=== PATIENT | female | born 1980 | race Caucasian/White ===

== ENCOUNTER → 2016-11-24 | Outpatient (REF) | payer OTHER | LOC: M SFHCPLAZ 15:23 | PROVIDERS: ATTEND Nurse Practitioner Family | DX: R19.7 Diarrhea, unspecified (principal) ==

== ENCOUNTER → 2016-11-27 | Outpatient (CLI) | payer BC, OTHER ==
[2016-11-27 09:36] LABS: BASO % 0.3 % (0.0-1.0); EOS # 0.1 K/mm3 (0.0-0.50); EOS % 1.9 % (0.0-3.0); LARGE UNSTAINED CELL # 0.1 K/mm3 (0.0-0.4); LARGE UNSTAINED CELL % 1.7 % (0.0-4.0); LYMPH # 1.2 K/mm3 (1.5-4.5); MEAN CORPUSCULAR HEMOGLOBIN 28.8 pg (27.0-33.0); MEAN CORPUSCULAR HGB CONC 32.9 g/dl (32.0-36.5); MEAN CORPUSCULAR VOLUME 87.4 fl (80.0-96.0); MONO # 0.3 K/mm3 (0.0-0.8); MONO % 5.2 % (0.0-5.0); NEUTROPHILS # 4.1 K/mm3 (1.8-7.7); NEUTROPHILS % 69.9 % (36.0-66.0); PLATELET COUNT, AUTOMATED 224 k/mm3 (150-450); WHITE BLOOD COUNT 5.8 K/mm3 (4.0-10.0)
[2016-11-27 10:29] LABS: ALBUMIN 3.4 GM/DL (3.2-5.2); ALBUMIN/GLOBULIN RATIO 1.17 (1.00-1.93); ALKALINE PHOSPHATASE 85 U/L (45-117); ALT/SGPT 37 U/L (12-78); ANION GAP 6 MEQ/L (8-16); AST/SGOT 14 U/L (15-37); BILIRUBIN,TOTAL 0.5 MG/DL (0.2-1.0); BLOOD UREA NITROGEN 14 MG/DL (7-18); CALCIUM LEVEL 8.5 MG/DL (8.5-10.1); CARBON DIOXIDE LEVEL 28 MEQ/L (21-32); CHLORIDE LEVEL 109 MEQ/L (98-107); CHOLESTEROL LEVEL 158 MG/DL (<200); CREATININE FOR GFR 0.62 MG/DL (0.55-1.02); FREE T4 0.98 NG/DL (0.76-1.46); GLOMERULAR FILTRATION RATE > 60.0 (>60); GLUCOSE, FASTING 90 MG/DL (70-105); POTASSIUM SERUM 4.2 MEQ/L (3.5-5.1); SODIUM LEVEL 143 MEQ/L (136-145); TOTAL PROTEIN 6.3 GM/DL (6.4-8.2); TRIGLYCERIDES LEVEL 59 MG/DL (<150)
== END ==
LOC: M LAB 09:09
PROVIDERS: ATTEND Nurse Practitioner Family
DX: R19.7 Diarrhea, unspecified (principal); Z83.3 Family history of diabetes mellitus; Z13.220 Encounter for screening for lipoid disorders; E55.9 Vitamin D deficiency, unspecified

== ENCOUNTER → 2017-01-11 | Outpatient (CLI) | payer BC, OTHER | LOC: M LAB 08:45 | PROVIDERS: ATTEND Internal Medicine Gastroenterology | DX: K58.0 Irritable bowel syndrome with diarrhea (principal) ==

== ENCOUNTER → 2017-01-13 | Outpatient (CLI) | payer BC, OTHER ==
[~2017-01-13] MED LIST: E-Z PAQUE 60% w/v SUSP 355ML BOTTLE As Ordered ONE
--- NOTE | 2017-01-13 15:24 | REP ---
SMALL BOWEL FOLLOW-THROUGH WITH KUB: 01/13/2017 COMPARISON: No prior study. CLINICAL HISTORY: Chronic diarrhea, recent increase in symptoms. FINDINGS: The gas pattern is nonspecific. No dilated loops are noted. The SI joints symmetric and normal without sclerosis or erosions. Visualized bones intact. No abnormal calcification. Oral barium preparation given with immediate and 20-minute images obtained and spot compression images. The 20-minute images show the oral contrast throughout the small bowel into the right colon. There is a normal feathery pattern of the jejunum mucosa. No nodularity, fold thickness abnormality. Contrast through the entire ileum. There is no dilated loops, angulated or strictured loops, loop separation or mass and no extrinsic mass effect on small bowel loops. The terminal ileum was well seen and showed normal peristalsis without stricture, loop separation or fold thickening. The ileocecal valve unremarkable. There was no tenderness with ballottement anywhere in the abdomen or pelvis on this examination. IMPRESSION: 1. Transit time to the cecum just less than 20 minutes with no dilated loops, angulated or strictured loops, loop separation, mass, extrinsic mass effect, full-thickness abnormality or filling defects in the small bowel loops. No significant finding. Fluoroscopy time: 1 minute 3 seconds. Signed by Jonnie Mack MD 01/13/2017 05:11 P
== END ==
LOC: M RAD 09:00
PROVIDERS: ATTEND Internal Medicine Gastroenterology
DX: R19.7 Diarrhea, unspecified (principal)

== ENCOUNTER → 2017-01-19 | Outpatient (CLI) | payer BC, OTHER ==
[~2017-01-19] VITALS: Ht 170.2 cm; Wt 79.8 kg
[~2017-01-19] MED LIST changes: -E-Z PAQUE 60% w/v SUSP 355ML BOTTLE As Ordered ONE; +LIDOCAINE 2% INJ 100 MG/5 ML SDV (FOR ANES.) As Ordered ONE; +NS 1,000 ML IV SCH; +PROPOFOL 200 MG/20 ML VIAL As Ordered ONE
--- NOTE | 2017-01-19 15:51 | ROOR ---
Patient Name: Leda Fajardo Procedure Date: 01/19/2017 3:39 PM Date of : 1980 Age: 36 Room: [facility] Gender: Female Note Status: Finalized Procedure: Upper GI endoscopy Indications: Generalized abdominal pain, Endoscopy to assess diarrhea in patient suspected of having disease of the small-bowel Providers: Song SHABAZZ MD Referring MD: Ciera Delgado NP Requesting Provider: Medicines: Monitored Anesthesia Care Complications: No immediate complications. Procedure: Pre-Anesthesia Assessment: - The heart rate, respiratory rate, oxygen saturations, blood pressure, adequacy of pulmonary ventilation, and response to care were monitored throughout the procedure. The Endoscope was introduced through the mouth, and advanced to the third part of duodenum. The upper GI endoscopy was accomplished without difficulty. The patient tolerated the procedure well. Findings: The esophagus was normal. The stomach was normal. The examined duodenum was normal. Biopsies for histology were taken with a cold forceps for evaluation of celiac disease. Impression: - Normal esophagus. - Normal stomach. - Normal examined duodenum. Biopsied. Recommendation: - Telephone endoscopist for pathology results in 2 weeks. Song Shabazz MD Song SHABAZZ MD 01/19/2017 3:51:05 PM This report has been signed electronically. Number of Addenda: 0 Note Initiated On: 01/19/2017 3:39 PM Estimated Blood Loss: Estimated blood loss: none.
--- NOTE | 2017-01-19 16:07 | ROOR ---
Patient Name: Leda Fajardo Procedure Date: 01/19/2017 3:40 PM Date of : 1980 Age: 36 Room: [facility] Gender: Female Note Status: Finalized Procedure: Colonoscopy Indications: Clinically significant diarrhea of unexplained origin Providers: Song SHABAZZ MD Referring MD: Ciera Delgado NP Requesting Provider: Medicines: Monitored Anesthesia Care Complications: No immediate complications. Procedure: Pre-Anesthesia Assessment: - The heart rate, respiratory rate, oxygen saturations, blood pressure, adequacy of pulmonary ventilation, and response to care were monitored throughout the procedure. The Colonoscope was introduced through the anus and advanced to 7 cm into the ileum. The colonoscopy was performed without difficulty. The patient tolerated the procedure well. The quality of the bowel preparation was good. Findings: The perianal and digital rectal examinations were normal. (Exam: Complete, Prep: Good or Excellent.) The terminal ileum appeared normal. Internal hemorrhoids were found during retroflexion. The hemorrhoids were moderate. A 5 mm polyp was found in the cecum. The polyp was sessile. The polyp was removed with a cold snare. Resection and retrieval were complete. The exam was otherwise without abnormality on direct and retroflexion views. Biopsies for histology were taken with a cold forceps from the entire colon for evaluation of microscopic colitis. Impression: - Moderate Internal hemorrhoids. - One 5 mm polyp in the cecum, removed with a cold snare. Resected and retrieved. - The examination of the colon and terminal ileum is otherwise normal on direct and retroflexion views. - Biopsies were taken with a cold forceps from the entire colon for evaluation of microscopic colitis. Recommendation: - stop Hyoscyamine, start 14 day course of Xifaxan for Irritable bowel syndrome - (the script was sent to your pharmacy on file) - Telephone endoscopist for pathology results in 2 weeks. Song Shabazz MD Song SHABAZZ MD 01/19/2017 4:07:08 PM This report has been signed electronically. Number of Addenda: 0 Note Initiated On: 01/19/2017 3:40 PM Estimated Blood Loss: Estimated blood loss: none.
[2017-01-19 16:30] VITALS: BP 104/67
== END | disposition home or self-care (01) ==
LOC: M OPP 12:32
PROVIDERS: ATTEND Internal Medicine Gastroenterology
DX: R19.7 Diarrhea, unspecified (principal); D12.0 Benign neoplasm of cecum; K64.8 Other hemorrhoids; R10.84 Generalized abdominal pain

== ENCOUNTER → 2017-03-10 | Outpatient (REF) | payer OTHER | LOC: M SFHCPLAZ 12:56 | PROVIDERS: ATTEND Nurse Practitioner Family | DX: E55.9 Vitamin D deficiency, unspecified (principal) ==

== ENCOUNTER → 2017-09-29 | Outpatient (REF) | payer OTHER ==
[2017-09-29 17:34] LABS: FOLATE 13.2 NG/ML; MEAN CORPUSCULAR HEMOGLOBIN 29.3 pg (27.0-33.0); MEAN CORPUSCULAR HGB CONC 33.3 g/dl (32.0-36.5); MEAN CORPUSCULAR VOLUME 88.1 fl (80.0-96.0); PLATELET COUNT, AUTOMATED 259 10^3/uL (150-450); WHITE BLOOD COUNT 8.1 10^3/uL (4.0-10.0)
[2017-09-29 17:39] LABS: FREE T4 1.07 NG/DL (0.76-1.46)
== END ==
LOC: M SFHCPLAZ 15:20
PROVIDERS: ATTEND Nurse Practitioner Family
DX: E55.9 Vitamin D deficiency, unspecified (principal); F32.9 Major depressive disorder, single episode, unspecified

== ENCOUNTER → 2017-12-03 | Outpatient (REF) | payer OTHER | LOC: M SFHCPLAZ 17:32 | DX: L72.12 Trichodermal cyst (principal) ==

== ENCOUNTER → 2017-12-31 | Outpatient (REF) | payer OTHER | LOC: M SFHCPLAZ 16:34 | DX: L72.11 Pilar cyst (principal) ==

== ENCOUNTER → 2018-06-09 | Outpatient (REF) | payer OTHER ==
[2018-06-11 14:50] LABS: HPV HYBRID CAPTURE II Negative (Negative)
== END ==
LOC: M LAB REF 14:56
DX: Z01.411 Encounter for gynecological examination (general) (routine) with abnormal findings (principal); Z12.4 Encounter for screening for malignant neoplasm of cervix

== ENCOUNTER → 2018-07-12 | Outpatient (REF) | payer OTHER ==
[2018-07-12 15:40] LABS: HEMATOCRIT 40.4 % (36.0-47.0); HEMOGLOBIN 13.7 g/dl (12.0-15.5); MEAN CORPUSCULAR HEMOGLOBIN 29.4 pg (27.0-33.0); MEAN CORPUSCULAR HGB CONC 33.9 g/dl (32.0-36.5); MEAN CORPUSCULAR VOLUME 86.7 fl (80.0-96.0); PLATELET COUNT, AUTOMATED 243 10^3/uL (150-450); RED BLOOD COUNT 4.66 10^6/uL (4.00-5.40); RED CELL DISTRIBUTION WIDTH 13.5 % (11.5-14.5); WHITE BLOOD COUNT 5.7 10^3/uL (4.0-10.0)
[2018-07-12 16:42] LABS: FREE T4 0.92 NG/DL (0.76-1.46)
== END ==
LOC: M LABDRAW1 11:19
DX: N92.4 Excessive bleeding in the premenopausal period (principal)

== ENCOUNTER → 2018-07-28 | Outpatient (REF) | payer OTHER | LOC: M LAB REF 17:50 | DX: N92.4 Excessive bleeding in the premenopausal period (principal) | CPT/HCPCS: 88304 ==

== ENCOUNTER 2018-09-26 06:00 | Day surgery (SDC) | payer BC, OTHER ==
[2018-09-26] MEDS: LR 1,000 ML IV ×5 (06:15→23:42)
[2018-09-26 06:33] LABS: HEMATOCRIT 44.4 % (36.0-47.0); HEMOGLOBIN 14.9 g/dl (12.0-15.5); MEAN CORPUSCULAR HEMOGLOBIN 29.1 pg (27.0-33.0); MEAN CORPUSCULAR HGB CONC 33.6 g/dl (32.0-36.5); MEAN CORPUSCULAR VOLUME 86.7 fl (80.0-96.0); PLATELET COUNT, AUTOMATED 290 10^3/uL (150-450); RED BLOOD COUNT 5.12 10^6/uL (4.00-5.40); RED CELL DISTRIBUTION WIDTH 13.1 % (11.5-14.5); WHITE BLOOD COUNT 7.9 10^3/uL (4.0-10.0)
[2018-09-26 07:04] LABS: CONTROL LINE HCG INT CTR LINE PRESENT; HCG, SERUM QUALITATIVE NEGATIVE (NEGATIVE)
[2018-09-26] MEDS ORDERED: SCOPOLAMINE 1MG TRANSDERMAL PATCH As Ordered (07:10)
[2018-09-26] MEDS: SCOPOLAMINE 1MG TRANSDERMAL PATCH TOP (07:15)
[2018-09-26] MEDS ORDERED: LIDOCAINE 2% INJ 100 MG/5 ML SDV (FOR ANES.) As Ordered (07:16)
[2018-09-26] MEDS ORDERED: MIDAZOLAM INJ 2 MG/2 ML VIAL (J2250) As Ordered (07:16)
[2018-09-26] MEDS ORDERED: fentaNYL 250 MCG/5 ML INJECTION (J3010) As Ordered (07:16)
[2018-09-26] MEDS ORDERED: PROPOFOL 200 MG/20 ML VIAL As Ordered (07:16)
[2018-09-26] MEDS ORDERED: ROCURONIUM BROMIDE 50 MG/5 ML VIAL As Ordered (07:16)
[2018-09-26] MEDS: BUPIVACAINE HCL 0.25% 30 ML VIAL As Ordered ×2 (07:31→08:12)
[2018-09-26] MEDS ORDERED: ceFAZolin 2 GM/D5W 50 ML IV BAG (J0690 PER 500MG) As Ordered (07:39)
[2018-09-26] MEDS ORDERED: ONDANSETRON 4MG/2ML VIAL (J2405) As Ordered ×2 (08:39)
[2018-09-26] MEDS ORDERED: METOCLOPRAMIDE INJ 10MG/2ML VIAL (J2765) As Ordered (08:39)
[2018-09-26] MEDS ORDERED: KETOROLAC 60 MG/2 ML VIAL (J1885) As Ordered (08:40)
[2018-09-26] MEDS ORDERED: NEOSTIGMINE 10 MG/10 ML VIAL (J2710) As Ordered (08:40)
[2018-09-26] MEDS ORDERED: dexameTHASONE 4 MG/ML 1ML VIAL (J1100) As Ordered ×2 (08:40)
[2018-09-26] MEDS ORDERED: GLYCOPYRROLATE INJ 0.2 MG/ML 2 ML VIAL As Ordered (08:40)
[2018-09-26] MEDS ORDERED: fentaNYL 100 MCG/2 ML INJECTION (J3010) As Ordered (09:06)
[2018-09-26] MEDS: METHYLENE BLUE 0.5% (5MG/ML) 10 ML AMP (PROVAYBLUE)(Q9968 PER 1MG) As Ordered (09:15)
[2018-09-26] MEDS ORDERED: ONDANSETRON 4MG/2ML VIAL (J2405) IV (10:15)
[2018-09-26] MEDS ORDERED: METOCLOPRAMIDE INJ 10MG/2ML VIAL (J2765) IV (10:15)
[2018-09-26] MEDS ORDERED: PERCOCET 5MG/325MG TAB PO (10:15)
[2018-09-26] MEDS ORDERED: fentaNYL 100 MCG/2 ML INJECTION (J3010) IV (10:15)
[2018-09-26] MEDS: PROMETHAZINE INJ 25 MG/ML VIAL (J2550) IV ×2 (11:24→19:03)
[2018-09-26] MEDS: MORPHINE 4 MG/ML 1ML VIAL/SYRINGE (J2270) IV (11:25)
[2018-09-26] MEDS: KETOROLAC 30 MG/ML VIAL (J1885) IV ×2 (15:06→21:17)
[2018-09-26] MEDS: ONDANSETRON 4MG/2ML VIAL (J2405) IV (16:49)
[2018-09-26] MEDS: zolPIDEM TARTRATE 5 MG TAB PO (21:29)
[2018-09-27] MEDS: KETOROLAC 30 MG/ML VIAL (J1885) IV ×2 (03:07→09:03)
[2018-09-27] MEDS: PERCOCET 5MG/325MG TAB PO ×3 (05:56→14:14)
== END 2018-09-27 16:03 | disposition home or self-care (01) ==
LOC: M SDC 06:00 → M OBS 11:05
DX: N93.9 Abnormal uterine and vaginal bleeding, unspecified (principal); K58.9 Irritable bowel syndrome, unspecified; R10.9 Unspecified abdominal pain; Z87.891 Personal history of nicotine dependence
CPT/HCPCS: 58573

== ENCOUNTER → 2019-05-03 | Outpatient (REF) | payer OTHER, BC ==
[~2019-05-03] MED LIST changes: -LIDOCAINE 2% INJ 100 MG/5 ML SDV (FOR ANES.) As Ordered ONE; -NS 1,000 ML IV SCH; +OXYC1TAB23 PO; +PERC5TAB12 PO; -PROPOFOL 200 MG/20 ML VIAL As Ordered ONE; +TRUVISION PO; +[UNRECOGNIZED DRUG - OTHER] PO; +[UNRECOGNIZED DRUG - OTHER] PO
[2019-05-03 16:12] LABS: BASO % 0.3 % (0.0-1.0); EOS # 0.1 10^3/uL (0.0-0.50); EOS % 1.4 % (0.0-3.0); HEMATOCRIT 44.2 % (36.0-47.0); HEMOGLOBIN 14.5 g/dl (12.0-15.5); LYMPH # 1.6 10^3/uL (1.5-4.5); LYMPH % 21.5 % (24.0-44.0); MEAN CORPUSCULAR HEMOGLOBIN 29.7 pg (27.0-33.0); MEAN CORPUSCULAR HGB CONC 32.8 g/dl (32.0-36.5); MEAN CORPUSCULAR VOLUME 90.4 fl (80.0-96.0); MONO # 0.4 10^3/uL (0.0-0.8); MONO % 5.4 % (0.0-5.0); NEUTROPHILS # 5.2 10^3/uL (1.8-7.7); NEUTROPHILS % 71.3 % (36.0-66.0); PLATELET COUNT, AUTOMATED 261 10^3/uL (150-450); RED BLOOD COUNT 4.89 10^6/uL (4.00-5.40); WHITE BLOOD COUNT 7.2 10^3/uL (4.0-10.0)
[2019-05-03 16:23] LABS: ALBUMIN 3.6 GM/DL (3.2-5.2); ALT/SGPT 20 U/L (12-78); BILIRUBIN,TOTAL 0.6 MG/DL (0.2-1.0); BLOOD UREA NITROGEN 10 MG/DL (7-18); CALCIUM LEVEL 8.6 MG/DL (8.5-10.1); CARBON DIOXIDE LEVEL 28 MEQ/L (21-32); CHLORIDE LEVEL 108 MEQ/L (98-107); CREATININE FOR GFR 0.74 MG/DL (0.55-1.30); FREE T4 0.92 NG/DL (0.76-1.46); GLOMERULAR FILTRATION RATE > 60.0 (>60); GLUCOSE, FASTING 138 MG/DL (70-100); POTASSIUM SERUM 4.1 MEQ/L (3.5-5.1); SODIUM LEVEL 140 MEQ/L (136-145); TOTAL PROTEIN 6.6 GM/DL (6.4-8.2)
[2019-05-03 16:27] LABS: TOTAL 25(OH) VITAMIN D 21.2 NG/ML (30.0-100.0)
== END ==
LOC: M LABDRAW1 13:46
PROVIDERS: ATTEND Nurse Practitioner Family
DX: R13.10 Dysphagia, unspecified (principal); F41.9 Anxiety disorder, unspecified; E55.9 Vitamin D deficiency, unspecified

== ENCOUNTER → 2019-07-06 | Outpatient (CLI) | payer BC, OTHER ==
[~2019-07-06] MED LIST changes: +E-Z-GAS II EFFERVESCENT PACKET (SODIUM BICARB./CITRIC ACID/SIMETHICONE) As Ordered ONE; +E-Z-HD 98% w/w 340GM SUSP BTL As Ordered ONE; +E-Z-PAQUE 96% w/w SUSP 176GM BTL As Ordered ONE
--- NOTE | 2019-07-06 16:36 | REP ---
Esophagram The procedure was performed under the direct supervision of Dr. Mittal. The images were reviewed with Dr. Mittal. A single view PA chest x-ray is submitted as a electron microscopist film. The superior mediastinal structures are midline. The heart size is within normal limits. The lungs are clear. Liquid barium and gas producing granules were given in the erect position as well as liquid barium in the prone oblique positions in order to perform a double contrast esophagram examination. The oral and pharyngeal stages of deglutition are unremarkable. Esophageal transport is prompt and efficient and there is no esophagitis, stricture, mucosal ring or hiatal hernia. There is gastroesophageal reflux demonstrated to the level of the thoracic inlet. Impression: There is gastroesophageal reflux demonstrated to the level of the thoracic inlet. Otherwise, unremarkable double contrast esophagram examination. 0.5 minutes of fluoro time was utilized for this procedure. Electronically Signed by ROMULO Unger 07/06/2019 03:13 P Electronically Signed by Conor Mittal MD 07/06/2019 04:27 P
== END ==
LOC: M RAD 08:15
PROVIDERS: ATTEND Otolaryngology
DX: R13.10 Dysphagia, unspecified (principal); K21.9 Gastro-esophageal reflux disease without esophagitis

== ENCOUNTER → 2019-10-25 | Outpatient (REF) | payer OTHER, BC ==
[~2019-10-25] MED LIST changes: -E-Z-GAS II EFFERVESCENT PACKET (SODIUM BICARB./CITRIC ACID/SIMETHICONE) As Ordered ONE; -E-Z-HD 98% w/w 340GM SUSP BTL As Ordered ONE; -E-Z-PAQUE 96% w/w SUSP 176GM BTL As Ordered ONE; +OMEP-218 PO; +RA M10TA PO; +SERT25TA21 PO; +VITA50005 PO
== END ==
LOC: M LABDRAW1 10:09
PROVIDERS: ATTEND Nurse Practitioner Family
DX: E55.9 Vitamin D deficiency, unspecified (principal)

== ENCOUNTER 2019-10-30 13:05 | Day surgery (SDC) | payer BC, OTHER ==
[~2019-10-30] VITALS: Ht 170.2 cm; Wt 79.4 kg
[~2019-10-30 13:05] MED LIST changes: +NS 1,000 ML IV SCH
[2019-10-30] MEDS ORDERED: LIDOCAINE 2% INJ 100 MG/5 ML SDV (FOR ANES.) As Ordered ONE (13:57)
[2019-10-30] MEDS ORDERED: VITA100066 PO (14:00)
[2019-10-30] MEDS ORDERED: fentaNYL 100 MCG/2 ML INJECTION (J3010) As Ordered ONE (14:02)
[2019-10-30] MEDS ORDERED: propofoL 200 MG/20 ML VIAL As Ordered ONE (14:02)
--- NOTE | 2019-10-30 15:10 | ROOR ---
Patient Name: Leda Fajardo Procedure Date: 10/30/2019 2:53 PM Date of : 1980 Age: 39 Room: [facility] Gender: Female Note Status: Finalized Procedure: Upper GI endoscopy Indications: Suspected esophageal reflux, Globus sensation Providers: Song SHABAZZ MD Referring MD: Ciera Delgado NP Requesting Provider: Medicines: Monitored Anesthesia Care Complications: No immediate complications. Procedure: Pre-Anesthesia Assessment: - The heart rate, respiratory rate, oxygen saturations, blood pressure, adequacy of pulmonary ventilation, and response to care were monitored throughout the procedure. The Endoscope was introduced through the mouth, and advanced to the second part of duodenum. The upper GI endoscopy was accomplished without difficulty. The patient tolerated the procedure well. Findings: The esophagus was normal. The stomach was normal. The examined duodenum was normal. Biopsies were obtained in the entire esophagus with cold forceps for evaluation of eosinophilic esophagitis. Impression: - Normal esophagus. - Normal stomach. - Normal examined duodenum. - Biopsies were obtained in the entire esophagus. Recommendation: - Await pathology results. - Telephone endoscopist for pathology results in 2 weeks. - Follow an antireflux regimen. - Use Prilosec (omeprazole) 20 mg PO BID for 3 months. Song Shabazz MD Song SHABAZZ MD 10/30/2019 3:10:24 PM Electronically signed by Song SHABAZZ MD Number of Addenda: 0 Note Initiated On: 10/30/2019 2:53 PM Estimated Blood Loss: Estimated blood loss: none.
[2019-10-30 15:33] VITALS: BP 120/77
== END 2019-10-30 15:42 | disposition home or self-care (01) ==
LOC: M OPP 13:05
PROVIDERS: ATTEND Internal Medicine Gastroenterology
DX: K21.9 Gastro-esophageal reflux disease without esophagitis (principal); F45.8 Other somatoform disorders; Z79.899 Other long term (current) drug therapy
CPT/HCPCS: 43239; 88305; J3010

== ENCOUNTER → 2020-08-21 | Outpatient (REF) | payer OTHER, BC ==
[~2020-08-21] MED LIST changes: -NS 1,000 ML IV SCH; +VITA100066 PO
[2020-08-21 13:42] LABS: ALBUMIN 3.4 GM/DL (3.2-5.2); ALT/SGPT 40 U/L (12-78); BILIRUBIN,TOTAL 0.6 MG/DL (0.2-1.0); BLOOD UREA NITROGEN 12 MG/DL (7-18); CALCIUM LEVEL 8.8 MG/DL (8.5-10.1); CARBON DIOXIDE LEVEL 28 MEQ/L (21-32); CHLORIDE LEVEL 110 MEQ/L (98-107); CHOLESTEROL LEVEL 186 MG/DL (<200); CHOLESTEROL RISK RATIO 4.043 (<5); CREATININE FOR GFR 0.62 MG/DL (0.55-1.30); GLOMERULAR FILTRATION RATE > 60.0 (>58); GLUCOSE, FASTING 92 MG/DL (70-100); HDL CHOLESTEROL 46 MG/DL (>40); LDL CHOLESTEROL 125 MG/DL (<100); NON-HDL-C 140 MG/DL; POTASSIUM SERUM 4.6 MEQ/L (3.5-5.1); SODIUM LEVEL 142 MEQ/L (136-145); TOTAL 25(OH) VITAMIN D 26.6 NG/ML (30.0-100.0); TOTAL PROTEIN 6.7 GM/DL (6.4-8.2); TRIGLYCERIDES LEVEL 74 MG/DL (<150)
== END ==
LOC: M SFHCPLAZ 11:10
PROVIDERS: ATTEND Nurse Practitioner Family
DX: E55.9 Vitamin D deficiency, unspecified (principal); F41.9 Anxiety disorder, unspecified; Z13.220 Encounter for screening for lipoid disorders

== ENCOUNTER → 2020-08-21 | Outpatient (REF) | payer OTHER | LOC: M PLALAB 12:33 | PROVIDERS: ATTEND Nurse Practitioner Family | DX: Z53.9 Procedure and treatment not carried out, unspecified reason (principal); F41.9 Anxiety disorder, unspecified; Z13.220 Encounter for screening for lipoid disorders; E55.9 Vitamin D deficiency, unspecified ==

== ENCOUNTER → 2020-08-22 | Outpatient (CLI) | payer BC, OTHER | LOC: M WHC 15:40 | PROVIDERS: ATTEND Obstetrics & Gynecology | DX: Z12.31 Encounter for screening mammogram for malignant neoplasm of breast (principal); Z53.9 Procedure and treatment not carried out, unspecified reason ==

== ENCOUNTER → 2020-09-06 | Outpatient (CLI) | payer BC ==
--- NOTE | 2020-09-06 12:57 | REPMRS ---
Patient History The patient states she had a clinical breast exam in August 2020. Family history of breast cancer in maternal grandmother. 3D TOMOSYNTHESIS WAS PERFORMED. The [facility] lifetime risk for breast cancer is 15.3%. Volpara breast density b. Digital Woman Screen Mammo: September 06, 2020 - Exam #: [id number] Bilateral CC and MLO view(s) were taken. Technologist: Martina Lopez, Technologist No prior studies available for comparison. FINDINGS: The breast tissue is heterogeneously dense. This may lower the sensitivity of mammography. There is a moderate amount of residual fibroglandular tissue which is fairly symmetric. There is no dominant mass, areas of architectural distortion, or clustered microcalcification typical of malignancy. Assessment: BI-RADS/ACR category 1 mammogram. Negative Mammogram. Recommendation Routine screening mammogram in 1 year (for women over age 40). This mammogram was interpreted with the aid of an FDA-approved computer-aided dectection system. Electronically Signed By: Conor Mittal MD 09/06/20 0200
== END ==
LOC: M WHC 10:46
PROVIDERS: ATTEND Obstetrics & Gynecology
DX: Z12.31 Encounter for screening mammogram for malignant neoplasm of breast (principal); Z80.3 Family history of malignant neoplasm of breast

== ENCOUNTER → 2020-10-09 | Outpatient (CLI) | payer BC, OTHER ==
[~2020-10-09] MED LIST changes: +PROHANCE 279.3MG/ML 15ML VIAL As Ordered ONE; +PROHANCE 279.3MG/ML 5ML VIAL As Ordered ONE
--- NOTE | 2020-10-09 15:20 | REPVR ---
PROCEDURE INFORMATION: Exam: MR Head Without and With Contrast Exam date and time: 10/09/2020 2:29 PM Age: 40 years old Clinical indication: Condition or disease; Other: Sdhd related pheochromocytoma tumor serval TECHNIQUE: Imaging protocol: MR of the head without and with intravenous contrast. Contrast material: PROHANCE; Contrast volume: 16 ml; Contrast route: INTRAVENOUS (IV); COMPARISON: No relevant prior studies available. FINDINGS: Brain: Examination of the brain demonstrates normal morphology and signal intensity.No acute infarction, masses, midline shift or acute hemorrhage is seen. No acute intracranial abnormality is identified.There is no abnormal diffusion weighted signal intensity to suggest an acute ischemic event.The cortical perez / white matter interfaces are preserved throughout the brain.Intracranial flow voids are well maintained. Cerebral ventricles: The ventricular system is not dilated and is appropriate for the patient's age. Bones/joints: Unremarkable. Paranasal sinuses: Moderate mucosal thickening is seen in the left maxillary sinus. Mastoid air cells: Normal as visualized. No mastoid effusion. Orbits: Unremarkable. Soft tissues: Unremarkable. IMPRESSION: 1. No acute infarction, masses or hemorrhage is seen. No acute intracranial abnormality is identified. 2. No abnormal contrast enhancement is seen. Electronically signed by: Terry Vogt On 10/09/2020 15:19:57 PM
--- NOTE | 2020-10-09 15:24 | REPVR ---
PROCEDURE INFORMATION: Exam: MR Neck Without and With Contrast Exam date and time: 10/09/2020 2:12 PM Age: 40 years old Clinical indication: Other: Sdhd related pheochromocytoma tumor serval TECHNIQUE: Imaging protocol: MR images of the neck without and with intravenous contrast. Contrast material: PROHANCE; Contrast volume: 16 ml; Contrast route: INTRAVENOUS (IV); COMPARISON: XA Esophagram Barium Swallow 07/06/2019 8:26 AM FINDINGS: Nasopharynx: Unremarkable. Oropharynx: Unremarkable. Hypopharynx: Unremarkable. Larynx: Unremarkable. Submandibular/Parotid glands: Unremarkable. Retropharyngeal space: Unremarkable. Brain: The visualized brain parenchyma is unremarkable. Vasculature: Unremarkable. Lymph nodes: No discrete mass or significant lymphadenopathy is seen. Nuclear medicine octreotide scan may be considered for further evaluation. Soft tissues: Unremarkable. Bones/joints: Bone marrow signal intensity of the visualized osseous structures is unremarkable. No acute fracture or dislocation is seen. The cervical spinal cord is normal in thickness and signal intensity.There is no cord compression or intramedullary signal abnormality. Other findings: No abnormal contrast enhancement is seen. IMPRESSION: 1. No discrete mass or significant lymphadenopathy is seen. Nuclear medicine octreotide scan may be considered for further evaluation. 2. No abnormal contrast enhancement is seen. Electronically signed by: Terry Vogt On 10/09/2020 15:24:15 PM
== END ==
LOC: M RAD 12:40
PROVIDERS: ATTEND Urology
DX: D35.00 Benign neoplasm of unspecified adrenal gland (principal)
CPT/HCPCS: 70543; 70553; A9576

== ENCOUNTER → 2020-10-15 | Outpatient (CLI) | payer BC, OTHER ==
--- NOTE | 2020-10-15 18:13 | REP ---
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 Rule out multifocal paraganglioma. COMPARISON: No comparison chest imaging.. TECHNIQUE: Axial, coronal, and sagittal imaging planes utilized. T1 and T2 weighted sequences include spin echo, turbo spin echo, and inversion recovery sequences. Gadolinium enhancement dose is 16 mL of intravenous ProHance and postcontrast imaging is included. FINDINGS: Cortical and medullary bone signal intensity are normal in the sternum, chest wall, spine pine elements and ribs. No mediastinal mass or adenopathy is observed. No paravertebral mass is observed. No for neural foraminal narrowing is seen in the thoracic spine. No spinal canal mass lesion is observed. Postcontrast images show enhancement of normal vascular structures in the thorax. No abnormal contrast enhancement is appreciated. IMPRESSION: Unremarkable MRI study of the through or thorax. No intrathoracic mass lesion is observed. <Electronically signed by Soren Davis > 10/15/20 [id number]
--- NOTE | 2020-10-15 18:37 | REP ---
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 Rule out multifocal paraganglioma. COMPARISON: None. TECHNIQUE: Axial and coronal T1 and T2 weighted sequences include spin echo, fast spin echo, gradient echo, in and out of phase, diffusion weighted scans, and dynamically acquired sequential postcontrast images. The contrast enhancement dose is 16 mL of intravenous ProHance. FINDINGS: There are several small peripheral high T2 low T1 signal intensity cysts along the anterior and posterior capsular margin of the spleen. The largest of these measures 8 mm. No splenic mass lesion is observed. No liver mass lesion it or liver cyst is appreciated. The kidneys enhance symmetrically and are morphologically intact. No abnormality is noted in the gallbladder. The pancreas shows no evidence of mass lesion. However, there is a cruz type magnetic field susceptibility artifact producing low T1 and low T2 signal intensity on all sequences in the retroperitoneum just anterior to the aorta and vena cava and just inferior to the level of the left renal vein. This is along the superior margin of the transverse duodenum. No abnormal contrast enhancement is seen. This is low in signal intensity on each sequence. Possibilities include contrast, possibly retained in the transverse duodenal diverticulum. The patient did have a small bowel follow-through in 2017 and review of those images does not show a duodenal diverticulum. Artifact from retroperitoneal postsurgical clips could produce this defect but I am not given history of prior surgery. The finding is of uncertain significance. No other retroperitoneum or intraperitoneal mass lesion is observed. No abnormal contrast enhancement is seen in the periaortic region or in the region of the aortic bifurcation. Visualized gastrointestinal structures are unremarkable. IMPRESSION: There is a 3-4 cm are area of blooming magnetic field susceptibility type artifact in the retroperitoneum anterior to the aorta and vena cava as described above of uncertain significance. Assuming that there has been no prior abdominal and retroperitoneal surgery, CT scanning of the abdomen could be performed for further evaluation. There are several peripheral small subcentimeter cysts in the spleen. No other abnormal finding. <Electronically signed by Soren Davis > 10/15/20 [id number]
--- NOTE | 2020-10-15 18:42 | REP ---
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 COMPARISON: No comparison pelvic MRI or CT. Patient is status post hysterectomy. There is a preoperative ultrasound from a 2018. TECHNIQUE: Axial, coronal and sagittal imaging planes are utilized. T1 and T2 weighted sequences include spin echo, turbo spin echo, inversion recovery and postcontrast T1 fat sat imaging.. FINDINGS: Cortical and medullary bone signal intensity are normal. No pelvic mass or adenopathy is observed. The uterus is surgically absent. Normal ovaries are seen. These sits somewhat high in the pelvis. There is a follicle cyst in the right ovary measuring 1.6 cm in greatest diameter. There is a small, 8 mm cyst in the vaginal fornix wall just to the left of midline. No bladder mass is seen. No extra pelvic adenopathy or mass lesion is observed. Postcontrast images show no abnormal contrast enhancement. IMPRESSION: No mass or adenopathy. Small cyst in the vaginal wall. Normal ovaries are visible. <Electronically signed by Soren Davis > 10/15/20 [id number]
== END ==
LOC: M RAD 14:43
PROVIDERS: ATTEND Urology
DX: D35.00 Benign neoplasm of unspecified adrenal gland (principal); D73.4 Cyst of spleen; N89.8 Other specified noninflammatory disorders of vagina
CPT/HCPCS: 71552; 72197; 74183; A9576

== ENCOUNTER → 2020-10-17 | Outpatient (CLI) | payer BC, OTHER ==
[~2020-10-17] MED LIST changes: -PROHANCE 279.3MG/ML 15ML VIAL As Ordered ONE; -PROHANCE 279.3MG/ML 5ML VIAL As Ordered ONE
== END ==
LOC: M LAB 08:42
PROVIDERS: ATTEND Urology
DX: D44.7 Neoplasm of uncertain behavior of aortic body and other paraganglia (principal)

== ENCOUNTER → 2020-12-09 | Outpatient (CLI) | payer BC, OTHER ==
[~2020-12-09] MED LIST changes: +ISOVUE-370 76% 100ML VIAL As Ordered ONE
--- NOTE | 2020-12-09 10:49 | REP ---
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 COMPARISON: MR abdomen 10/15/2020 TECHNIQUE: Bolus 100 mL Isovue 370 scanning through the abdomen with 15 minutes delayed images also obtained. Coronal and sagittal reconstructions provided. FINDINGS: The lung bases are clear. The heart is not enlarged there is no pericardial thickening or effusion. There is no hiatal hernia. The liver is homogeneous in enhancement without focal hepatic mass the left lobe is enlarged and wraps around the upper pole spleen as an anatomic variation. No ascites no biliary dilatation. No solid or cystic hepatic mass. Gallbladder shows no calcified stone or mass. Pancreas was grossly unremarkable. Spleen shows few tiny subcapsular cysts but is otherwise normal. There are no metallic densities overlying the abdomen with particular attention to the area magnetic susceptibility or blooming artifact noted on MRI on 10/15/2020. This is near the position of the 3rd portion of the duodenum on the CT when compared to the previous study. The family intervention specialist film and these images show no metallic foreign body or clip. Small bowel loops without abnormal dilatation with some fluid density within one of the small bowel loops in the left mid abdomen in the proximal to mid jejunum but no inflammatory changes in the mesentery, adenopathy, generalized ascites, perforation or free air. The colon shows no sign of colitis or diverticulitis. The aorta is without aneurysm. There is no periaortic, other retroperitoneal or mesenteric pathologic sized lymphadenopathy. No aortocaval nodes or masses seen. The adrenal glands show no nodularity or mass. Bony thorax and lumbar spine levels included were grossly intact. Visualized ribs are unremarkable. IMPRESSION: 1. No periaortic, aortocaval or other retroperitoneal adenopathy or mass. The area where may mimic susceptibility artifact a blooming artifact noted in the aortocaval region on MRI in 10/15/2020, there is no metallic foreign body or clip evident. Over the 3rd portion the duodenum is present it is possible that a metallic density was transmitted orally into the duodenum causing this finding. Nothing by CT today. No periaortic, aortocaval or other retroperitoneal adenopathy or mass. 2. Few small sub capsular splenic cysts. Gallbladder, pancreas and adrenal glands normal. 3. A small bowel loops show 1 loop left upper quadrant with the some fluid within but no mass or inflammatory change and no obstruction or ileus suggested. The intra-abdominal colon is unremarkable. No acute finding today. <Electronically signed by Jonnie Mack > 12/09/20 1045
== END ==
LOC: M RAD 08:02
DX: D35.00 Benign neoplasm of unspecified adrenal gland (principal)
CPT/HCPCS: 74160; Q9967

== ENCOUNTER → 2021-02-19 | Outpatient (CLI) | payer BC, OTHER ==
[~2021-02-19] MED LIST changes: -ISOVUE-370 76% 100ML VIAL As Ordered ONE
== END ==
LOC: M LAB 17:18
PROVIDERS: ATTEND Nurse Practitioner Family
DX: E55.9 Vitamin D deficiency, unspecified (principal)

== ENCOUNTER → 2021-02-25 | Outpatient (CLI) | payer BC, OTHER ==
--- NOTE | 2021-02-26 07:50 | REP ---
INDICATION: PAIN IN RIGHT FOOT COMPARISON: None. TECHNIQUE: AP, lateral, bilateral oblique views right foot. FINDINGS: The osseous structures and joint spaces are intact and normal. There is no evidence for acute fracture or dislocation. Surrounding soft tissues are unremarkable. No subcutaneous emphysema or radiodense foreign body. IMPRESSION: Normal right foot radiographs. No acute fracture or dislocation. <Electronically signed by Stepan Gregorio > 02/26/21 0703
== END ==
LOC: M RAD 12:34
PROVIDERS: ATTEND Nurse Practitioner Family
DX: M79.671 Pain in right foot (principal)

== ENCOUNTER → 2021-07-18 | Outpatient (CLI) | payer BC, OTHER ==
[~2021-07-18] MED LIST changes: +ERGO500029 PO; -VITA50005 PO
--- NOTE | 2021-07-18 13:07 | REP ---
INDICATION: PAIN IN LEFT KNEE COMPARISON: None TECHNIQUE: Five views FINDINGS: The compartments are symmetric and well maintained. There is no acute fracture, dislocation, or subluxation. IMPRESSION: Within normal limits <Electronically signed by Dominik Dumont > 07/18/21 [id number]
== END ==
LOC: M PLAIMG 10:57
PROVIDERS: ATTEND Nurse Practitioner Family
DX: M25.562 Pain in left knee (principal)

== ENCOUNTER → 2022-02-25 | Outpatient (CLI) | payer BC, OTHER ==
[~2022-02-25] MED LIST changes: +OMEP-173 PO; -OMEP-218 PO; +VITA100093 PO
== END ==
LOC: M WHC 07:58
PROVIDERS: ATTEND Nurse Practitioner Family
DX: Z12.31 Encounter for screening mammogram for malignant neoplasm of breast (principal); Z80.3 Family history of malignant neoplasm of breast

== ENCOUNTER → 2022-03-30 | Outpatient (CLI) | payer BC, OTHER | LOC: M LABSMTC 09:39 | PROVIDERS: ATTEND Anesthesiology | DX: Z01.818 Encounter for other preprocedural examination (principal); Z11.52 Encounter for screening for COVID-19 ==

== ENCOUNTER 2022-04-03 09:39 | Day surgery (SDC) | payer BC, OTHER ==
[~2022-04-03] VITALS: Ht 170.2 cm; Wt 78.0 kg
[~2022-04-03 09:39] MED LIST changes: +NS 1,000 ML IV ONE
[2022-04-03] MEDS ORDERED: LIDOCAINE 2% 100MG/5ML SDV (FOR ANES.) As Ordered ONE (09:53)
[2022-04-03] MEDS ORDERED: propofoL 200 MG/20 ML VIAL As Ordered ONE (09:53)
[2022-04-03 11:35] VITALS: BP 103/58
== END 2022-04-03 11:43 | disposition home or self-care (01) ==
LOC: M OPP 09:39
PROVIDERS: ATTEND Internal Medicine Gastroenterology
DX: Z12.11 Encounter for screening for malignant neoplasm of colon (principal); Z86.010 Personal history of colon polyps; N80.9 Endometriosis, unspecified; Z80.51 Family history of malignant neoplasm of kidney; Z80.3 Family history of malignant neoplasm of breast; Z79.899 Other long term (current) drug therapy

== ENCOUNTER → 2022-08-20 | Outpatient (CLI) | payer BC, OTHER ==
[~2022-08-20] MED LIST changes: -NS 1,000 ML IV ONE; +SERT25TA85 PO; +SERT50TA29 PO
[2022-08-20 08:32] LABS: BASO % 0.5 % (0.0-1.0); EOS # 0.1 10^3/uL (0.0-0.5); EOS % 1.7 % (0.0-3.0); HEMOGLOBIN 14.3 g/dl (12.0-15.5); LYMPH # 1.3 10^3/uL (1.5-5.0); LYMPH % 20.5 % (24.0-44.0); MEAN CORPUSCULAR HEMOGLOBIN 29.2 pg (27.0-33.0); MEAN CORPUSCULAR HGB CONC 32.5 g/dl (32.0-36.5); MONO # 0.4 10^3/uL (0.0-0.8); MONO % 6.7 % (2.0-8.0); NEUTROPHILS # 4.5 10^3/uL (1.5-8.5); NEUTROPHILS % 70.3 % (36.0-66.0); PLATELET COUNT, AUTOMATED 239 10^3/uL (150-450); RED BLOOD COUNT 4.89 10^6/uL (4.00-5.40); WHITE BLOOD COUNT 6.4 10^3/uL (4.0-10.0)
[2022-08-20 09:24] LABS: BLOOD UREA NITROGEN 14 MG/DL (7-18); CALCIUM LEVEL 8.4 MG/DL (8.5-10.1); CARBON DIOXIDE LEVEL 25 MEQ/L (21-32); CHLORIDE LEVEL 110 MEQ/L (98-107); GLOMERULAR FILTRATION RATE > 60.0 (>58); GLUCOSE, FASTING 100 MG/DL (70-100); POTASSIUM SERUM 4.5 MEQ/L (3.5-5.1); SODIUM LEVEL 141 MEQ/L (136-145)
== END ==
LOC: M LAB 07:57
PROVIDERS: ATTEND Podiatrist
DX: M72.2 Plantar fascial fibromatosis (principal); M79.672 Pain in left foot

== ENCOUNTER → 2022-08-25 | Outpatient (CLI) | payer BC, OTHER | LOC: M LABSMTC 10:24 | PROVIDERS: ATTEND Anesthesiology | DX: Z01.812 Encounter for preprocedural laboratory examination (principal); Z11.52 Encounter for screening for COVID-19 ==

== ENCOUNTER 2022-08-28 08:15 | Day surgery (SDC) | payer BC, OTHER ==
[~2022-08-28] VITALS: Ht 170.2 cm; Wt 84.7 kg
[~2022-08-28 08:15] MED LIST changes: +ceFAZolin SOD 2 GM in IV 1 EA IV ONE
[2022-08-28] MEDS ORDERED: MIDAZOLAM INJ 2MG/2ML VIAL (J2250 PER 1MG) As Ordered ONE (08:17)
[2022-08-28] MEDS ORDERED: fentaNYL 100 MCG/2 ML INJECTION As Ordered ONE (08:17)
[2022-08-28] MEDS ORDERED: propofoL 500 MG/50 ML VIAL As Ordered ONE (08:17)
[2022-08-28] MEDS ORDERED: dexameTHASONE 4 MG/ML 1ML VIAL (J1100 PER 1MG) As Ordered ONE ×2 (08:18→09:47)
[2022-08-28] MEDS ORDERED: ONDANSETRON 4MG 2ML VIAL As Ordered ONE (08:18)
[2022-08-28] MEDS ORDERED: LIDOCAINE 2% 100MG/5ML SDV (FOR ANES.) As Ordered ONE (08:19)
[2022-08-28] MEDS ORDERED: LR 1,000 ML IV SCH (08:55)
[2022-08-28] MEDS ORDERED: GENTAMICIN SULF 80MG/2ML VIAL As Ordered ONE (09:47)
[2022-08-28] MEDS ORDERED: BUPIVACAINE HCL 0.5% 30ML VIAL As Ordered ONE (09:47)
[2022-08-28] MEDS ORDERED: LIDOCAINE 2% MDV 20ML VIAL As Ordered ONE (09:47)
[2022-08-28 11:37] VITALS: BP 125/80
== END 2022-08-28 12:04 | disposition home or self-care (01) ==
LOC: M SDC 08:15
PROVIDERS: ATTEND Podiatrist
DX: M72.2 Plantar fascial fibromatosis (principal); K58.8 Other irritable bowel syndrome; F41.9 Anxiety disorder, unspecified; Z87.891 Personal history of nicotine dependence; Z79.899 Other long term (current) drug therapy
CPT/HCPCS: 29893; 97116; J0690; J1100; J1580; J2250; J2405; J3010

== ENCOUNTER → 2023-02-05 | Outpatient (CLI) | payer BC, OTHER ==
[~2023-02-05] MED LIST changes: +PROHANCE 279.3MG/ML 15ML VIAL ONE; +PROHANCE 279.3MG/ML 5ML VIAL ONE; -ceFAZolin SOD 2 GM in IV 1 EA IV ONE
== END ==
LOC: M PLAIMG 07:44
PROVIDERS: ATTEND Nurse Practitioner Family
DX: Z15.89 Genetic susceptibility to other disease (principal)
CPT/HCPCS: 72197; 74183; A9576

== ENCOUNTER → 2023-02-15 | Outpatient (CLI) | payer BC, OTHER | LOC: M PLAIMG 07:40 | PROVIDERS: ATTEND Nurse Practitioner Family | DX: D35.00 Benign neoplasm of unspecified adrenal gland (principal) | CPT/HCPCS: 70543; 71552; A9576 ==

== ENCOUNTER → 2023-07-05 | Outpatient (CLI) | payer BC, OTHER ==
[~2023-07-05] MED LIST changes: -PROHANCE 279.3MG/ML 15ML VIAL ONE; -PROHANCE 279.3MG/ML 5ML VIAL ONE
== END ==
LOC: M WHC 14:31
PROVIDERS: ATTEND Nurse Practitioner Family
DX: Z12.31 Encounter for screening mammogram for malignant neoplasm of breast (principal)

== ENCOUNTER → 2023-11-22 | Outpatient (CLI) | payer BC, OTHER ==
[2023-11-22 15:59] LABS: BASO % 0.5 % (0.0-1.0); EOS # 0.1 10^3/uL (0.0-0.5); EOS % 1.8 % (0.0-3.0); HEMOGLOBIN 14.6 g/dl (12.0-15.5); LYMPH # 1.1 10^3/uL (1.5-5.0); LYMPH % 17.7 % (24.0-44.0); MEAN CORPUSCULAR HEMOGLOBIN 29.9 pg (27.0-33.0); MEAN CORPUSCULAR HGB CONC 33.2 g/dl (32.0-36.5); MEAN CORPUSCULAR VOLUME 90.2 fl (80.0-96.0); MONO # 0.4 10^3/uL (0.0-0.8); MONO % 6.3 % (2.0-8.0); NEUTROPHILS # 4.5 10^3/uL (1.5-8.5); NEUTROPHILS % 73.4 % (36.0-66.0); PLATELET COUNT, AUTOMATED 281 10^3/uL (150-450); RED BLOOD COUNT 4.88 10^6/uL (4.00-5.40); WHITE BLOOD COUNT 6.1 10^3/uL (4.0-10.0)
[2023-11-22 16:28] LABS: HEMOGLOBIN A1c 4.9 % (4.0-6.0)
[2023-11-22 16:40] LABS: THYROID STIMULATING HORMONE 1.596 uIU/ML (0.55-4.78); TOTAL 25(OH) VITAMIN D 23.6 NG/ML (20.0-100.0)
[2023-11-22 16:41] LABS: FREE T4 0.95 NG/DL (0.89-1.76)
[2023-11-22 16:59] LABS: ALBUMIN 3.3 G/DL (3.2-5.2); ALKALINE PHOSPHATASE 100 U/L (46-116); ALT/SGPT 27 U/L (7.0-40); AST/SGOT 11 U/L (<34); BILIRUBIN,TOTAL 0.4 MG/DL (0.3-1.2); BLOOD UREA NITROGEN 11 MG/DL (9-23); CALCIUM LEVEL 8.4 MG/DL (8.5-10.1); CARBON DIOXIDE LEVEL 26 MMOL/L (20-31); CHLORIDE LEVEL 111 MMOL/L (98-107); CHOLESTEROL LEVEL 173 MG/DL (<200); CHOLESTEROL RISK RATIO 3.96 (<5); CREATININE FOR GFR 1.05 MG/DL (0.55-1.30); GLOMERULAR FILTRATION RATE > 60.0 (>58); GLUCOSE, FASTING 83 MG/DL (60-100); HDL CHOLESTEROL 43.6 MG/DL (>40); LDL CHOLESTEROL 91.6 MG/DL (<100); NON-HDL-C 129.4 MG/DL; POTASSIUM SERUM 4.3 MMOL/L (3.5-5.1); SODIUM LEVEL 143 MMOL/L (136-145); TOTAL PROTEIN 6.1 G/DL (5.7-8.2); TRIGLYCERIDES LEVEL 189 MG/DL (<150)
== END ==
LOC: M PLALAB 12:09
PROVIDERS: ATTEND Nurse Practitioner Family
DX: Z00.00 Encounter for general adult medical examination without abnormal findings (principal); M25.521 Pain in right elbow

== ENCOUNTER 2024-04-26 07:53 | Day surgery (SDC) | payer BC ==
[~2024-04-26] VITALS: Ht 170.2 cm; Wt 90.1 kg
[~2024-04-26 07:53] MED LIST changes: +SERT-141 PO
[2024-04-26] MEDS ORDERED: MIDAZOLAM INJ 2MG/2ML VIAL As Ordered ONE (08:11)
[2024-04-26] MEDS ORDERED: propofoL 200 MG/20 ML VIAL As Ordered ONE (08:12)
[2024-04-26] MEDS ORDERED: LIDOCAINE 2% 100MG/5ML SDV (FOR ANES.) As Ordered ONE (08:12)
[2024-04-26] MEDS ORDERED: KETOROLAC 60MG 2ML VIAL As Ordered ONE (08:12)
[2024-04-26] MEDS ORDERED: fentaNYL 100 MCG/2 ML INJECTION As Ordered ONE (08:12)
[2024-04-26] MEDS ORDERED: ONDANSETRON 4MG 2ML VIAL As Ordered ONE (08:12)
[2024-04-26 08:34] LABS: HEMATOCRIT 42.4 % (36.0-47.0); HEMOGLOBIN 14.5 g/dl (12.0-15.5); MEAN CORPUSCULAR HEMOGLOBIN 30.1 pg (27.0-33.0); MEAN CORPUSCULAR HGB CONC 34.2 g/dl (32.0-36.5); MEAN CORPUSCULAR VOLUME 88.1 fl (80.0-96.0); PLATELET COUNT, AUTOMATED 285 10^3/uL (150-450); RED BLOOD COUNT 4.81 10^6/uL (4.00-5.40); WHITE BLOOD COUNT 5.2 10^3/uL (4.0-10.0)
[2024-04-26] MEDS: METHYLENE BLUE 0.5% (5MG/ML) 10 ML AMP (PROVAYBLUE) As Ordered ONE (08:43)
[2024-04-26 08:59] LABS: APPEARANCE, URINE MANUAL CLEAR (CLEAR); BILIRUBIN, URINE MANUAL NEGATIVE (NEGATIVE); BLOOD URINE MANUAL NEGATIVE (NEGATIVE); COLOR, URINE MANUAL YELLOW (YELLOW); GLUCOSE, URINE (UA) MANUAL NEGATIVE (NEGATIVE); KETONE, URINE MANUAL NEGATIVE (NEGATIVE); LEUKOCYTE ESTERASE, URINE MAN NEGATIVE (NEGATIVE); NITRITE, URINE MANUAL NEGATIVE (NEGATIVE); PROTEIN, URINE MANUAL NEGATIVE (NEGATIVE); UROBILINOGEN, URINE MANUAL NORMAL (NORMAL)
[2024-04-26] MEDS ORDERED: ACETAMINOPHEN 1000MG 100ML IV BAG As Ordered ONE (09:06)
[2024-04-26] MEDS ORDERED: SCOPOLAMINE 1MG TRANSDERMAL PATCH As Ordered ONE (09:06)
[2024-04-26] MEDS ORDERED: dexmedeTOMIDine (4MCG/ML)200MCG/50ML BTL (PRECEDEX) As Ordered ONE (09:16)
[2024-04-26] MEDS ORDERED: METOCLOPRAMIDE INJ 10MG/2ML VIAL As Ordered ONE (09:26)
[2024-04-26] MEDS: LIDOCAINE W/EPINEPHRINE 1% 20ML VIAL As Ordered ONE (09:40)
[2024-04-26] MEDS: ceFAZolin 2 GM/D5W 50 ML IV BAG As Ordered ONE (09:48)
[2024-04-26] MEDS ORDERED: LR 1,000 ML IV SCH (10:05)
[2024-04-26] MEDS ORDERED: ONDANSETRON 4MG 2ML VIAL IV PRN (10:05)
[2024-04-26] MEDS ORDERED: fentaNYL 100 MCG/2 ML INJECTION IV PRN (10:05)
[2024-04-26] MEDS ORDERED: oxyCODONE 5MG TAB PO PRN (10:05)
[2024-04-26] MEDS ORDERED: PERCOCET 5MG/325MG TAB PO PRN (10:30)
[2024-04-26 11:45] VITALS: BP 116/70; TEMP 97.1; O2SAT 97
[2024-04-26] MEDS ORDERED: KETOROLAC 30 MG/ML 1ML VIAL IV SCH (16:00)
== END 2024-04-26 11:45 | disposition home or self-care (01) ==
LOC: M SDC 07:53
PROVIDERS: ATTEND Obstetrics & Gynecology
DX: N39.3 Stress incontinence (female) (male) (principal); K58.0 Irritable bowel syndrome with diarrhea; R07.89 Other chest pain; E55.9 Vitamin D deficiency, unspecified; N80.00 Endometriosis of the uterus, unspecified; E07.9 Disorder of thyroid, unspecified; F41.9 Anxiety disorder, unspecified; F32.A Depression, unspecified; Z87.891 Personal history of nicotine dependence
CPT/HCPCS: 36415; 57288; 81002; 85027; 86850; 86900; 86901; C1771; J0131; J0690; J1100; J1885; J2250; J2405; J2765; J3010

== ENCOUNTER → 2024-06-29 | Outpatient (CLI) | payer BC | LOC: M WHC 10:31 | PROVIDERS: ATTEND Obstetrics & Gynecology | DX: R10.2 Pelvic and perineal pain (principal) ==

== ENCOUNTER → 2024-08-17 | Outpatient (CLI) | payer BC | LOC: M WHC 13:42 | PROVIDERS: ATTEND Obstetrics & Gynecology | DX: N83.209 Unspecified ovarian cyst, unspecified side (principal) ==

== ENCOUNTER → 2024-11-09 | Outpatient (CLI) | payer BC, OTHER ==
[2024-11-09 12:59] LABS: HEMATOCRIT 45.3 % (36.0-47.0); HEMOGLOBIN 15.1 g/dl (12.0-15.5); MEAN CORPUSCULAR HEMOGLOBIN 29.5 pg (27.0-33.0); MEAN CORPUSCULAR HGB CONC 33.3 g/dl (32.0-36.5); MEAN CORPUSCULAR VOLUME 88.5 fl (80.0-96.0); PLATELET COUNT, AUTOMATED 276 10^3/uL (150-450); RED BLOOD COUNT 5.12 10^6/uL (4.00-5.40); WHITE BLOOD COUNT 7.9 10^3/uL (4.0-10.0)
[2024-11-09 13:02] LABS: LIPASE 32 U/L (12-53)
[2024-11-09 13:05] LABS: ALBUMIN 3.6 G/DL (3.2-5.2); ALKALINE PHOSPHATASE 96 U/L (35-104); ALT/SGPT 39 U/L (7.0-40); AST/SGOT 12 U/L (<34); BILIRUBIN,TOTAL 0.5 MG/DL (0.3-1.2); BLOOD UREA NITROGEN 11 MG/DL (9-23); CALCIUM LEVEL 9.2 MG/DL (8.5-10.1); CARBON DIOXIDE LEVEL 26 MMOL/L (20-31); CHLORIDE LEVEL 109 MMOL/L (98-107); CREATININE FOR GFR 0.61 MG/DL (0.55-1.30); GLOMERULAR FILTRATION RATE > 60.0 (>58); GLUCOSE, FASTING 81 MG/DL (60-100); POTASSIUM SERUM 4.5 MMOL/L (3.5-5.1); SODIUM LEVEL 141 MMOL/L (136-145); TOTAL PROTEIN 7.1 G/DL (5.7-8.2)
== END ==
LOC: M PLALAB 09:32
PROVIDERS: ATTEND Physician Assistant Medical
DX: R31.29 Other microscopic hematuria (principal); M54.9 Dorsalgia, unspecified; R10.30 Lower abdominal pain, unspecified

== ENCOUNTER → 2024-11-09 | Outpatient (CLI) | payer BC, OTHER | LOC: M RAD 10:14 | PROVIDERS: ATTEND Physician Assistant Medical | DX: R10.30 Lower abdominal pain, unspecified (principal); M54.9 Dorsalgia, unspecified; R31.29 Other microscopic hematuria ==

== ENCOUNTER → 2025-02-16 | Outpatient (REF) | payer BC, OTHER ==
[2025-02-16 11:48] LABS: BASO % 0.6 % (0.0-1.0); EOS # 0.1 10^3/uL (0.0-0.5); EOS % 1.2 % (0.0-3.0); HEMATOCRIT 43.9 % (36.0-47.0); HEMOGLOBIN 14.4 g/dl (12.0-15.5); LYMPH # 1.5 10^3/uL (1.5-5.0); LYMPH % 20.9 % (24.0-44.0); MEAN CORPUSCULAR HEMOGLOBIN 28.9 pg (27.0-33.0); MEAN CORPUSCULAR HGB CONC 32.8 g/dl (32.0-36.5); MONO # 0.5 10^3/uL (0.0-0.8); MONO % 7.2 % (2.0-8.0); NEUTROPHILS # 5.1 10^3/uL (1.5-8.5); NEUTROPHILS % 69.7 % (36.0-66.0); PLATELET COUNT, AUTOMATED 293 10^3/uL (150-450); RED BLOOD COUNT 4.99 10^6/uL (4.00-5.40); WHITE BLOOD COUNT 7.2 10^3/uL (4.0-10.0)
[2025-02-16 11:53] LABS: ALBUMIN 3.5 G/DL (3.2-5.2); ALKALINE PHOSPHATASE 86 U/L (35-104); ALT/SGPT 28 U/L (7.0-40); AST/SGOT 11 U/L (<34); BILIRUBIN,TOTAL 0.6 MG/DL (0.3-1.2); BLOOD UREA NITROGEN 13 MG/DL (9-23); CALCIUM LEVEL 8.8 MG/DL (8.5-10.1); CARBON DIOXIDE LEVEL 27 MMOL/L (20-31); CHLORIDE LEVEL 106 MMOL/L (98-107); CHOLESTEROL LEVEL 199 MG/DL (<200); CHOLESTEROL RISK RATIO 4.46 (<5); CREATININE FOR GFR 0.56 MG/DL (0.55-1.30); GLOMERULAR FILTRATION RATE > 90.0 (>58); GLUCOSE, FASTING 101 MG/DL (60-100); HDL CHOLESTEROL 44.6 MG/DL (>40); LDL CHOLESTEROL 132.6 MG/DL (<100); NON-HDL-C 154.4 MG/DL; POTASSIUM SERUM 4.5 MMOL/L (3.5-5.1); SODIUM LEVEL 141 MMOL/L (136-145); TOTAL PROTEIN 6.4 G/DL (5.7-8.2); TRIGLYCERIDES LEVEL 109 MG/DL (<150)
[2025-02-16 11:56] LABS: THYROID STIMULATING HORMONE 1.615 uIU/ML (0.55-4.78)
== END ==
LOC: M SFHCPLAZ 10:05
PROVIDERS: ATTEND Nurse Practitioner Family
DX: K62.5 Hemorrhage of anus and rectum (principal); E78.5 Hyperlipidemia, unspecified; E55.9 Vitamin D deficiency, unspecified; F41.9 Anxiety disorder, unspecified

== ENCOUNTER 2025-04-23 09:50 | Day surgery (SDC) | payer BC ==
[~2025-04-23] VITALS: Ht 170.2 cm; Wt 86.4 kg
[~2025-04-23 09:50] MED LIST changes: +TIRZ2.5P3 SQ
[2025-04-23] MEDS ORDERED: LIDOCAINE 2% 100 MG/5 ML SDV (FOR ANES.) As Ordered ONE (11:17)
[2025-04-23] MEDS ORDERED: GLYCOPYRROLATE INJ 0.2 MG/ML 2 ML VIAL As Ordered ONE (11:17)
[2025-04-23 11:35] VITALS: TEMP 96
[2025-04-23 11:54] VITALS: BP 128/87; O2SAT 98
== END 2025-04-23 11:54 | disposition home or self-care (01) ==
LOC: M OPP 09:50
PROVIDERS: ATTEND Internal Medicine Gastroenterology
DX: K57.30 Diverticulosis of large intestine without perforation or abscess without bleeding (principal); K64.8 Other hemorrhoids; K58.0 Irritable bowel syndrome with diarrhea; K92.1 Melena; Z79.85 Long-term (current) use of injectable non-insulin antidiabetic drugs; Z79.899 Other long term (current) drug therapy
CPT/HCPCS: 45378; J1596

== ENCOUNTER → 2025-05-08 | Outpatient (CLI) | payer BC ==
[~2025-05-08] MED LIST changes: +PROHANCE 279.3MG/ML 15ML VIAL ONE; +PROHANCE 279.3MG/ML 5ML VIAL ONE
== END ==
LOC: M PLAIMG 10:14
PROVIDERS: ATTEND Nurse Practitioner Family
DX: Z15.89 Genetic susceptibility to other disease (principal)
CPT/HCPCS: 70543; 71552; A9576

== ENCOUNTER → 2025-05-15 | Outpatient (CLI) | payer BC ==
[~2025-05-15] MED LIST changes: -PROHANCE 279.3MG/ML 15ML VIAL ONE; -PROHANCE 279.3MG/ML 5ML VIAL ONE
== END ==
LOC: M PLAIMG 10:19
PROVIDERS: ATTEND Nurse Practitioner Family
DX: M46.1 Sacroiliitis, not elsewhere classified (principal); K76.0 Fatty (change of) liver, not elsewhere classified; K86.2 Cyst of pancreas; R16.1 Splenomegaly, not elsewhere classified; Z15.89 Genetic susceptibility to other disease

== ENCOUNTER → 2025-07-23 | Outpatient (REF) | payer BC, OTHER | LOC: M LAB REF 11:56 | DX: J02.9 Acute pharyngitis, unspecified (principal) ==

== ENCOUNTER → 2025-08-05 | Outpatient (REF) | payer BC, OTHER ==
[2025-08-05 18:12] LABS: APPEARANCE, URINE HAZY (CLEAR); BACTERIA, URINE AUTO 1+ (NEGATIVE); BILIRUBIN, URINE AUTO NEGATIVE (NEGATIVE); BLOOD, URINE BLOOD 3+ (NEGATIVE); GLUCOSE, URINE (UA) AUTO NEGATIVE (NEGATIVE); KETONE, URINE AUTO TRACE mg/dL (NEGATIVE); LEUKOCYTE ESTERASE, URINE AUTO 2+ (NEGATIVE); MUCUS, URINE MODERATE (NEGATIVE); NITRITE, URINE AUTO NEGATIVE (NEGATIVE); PROTEIN, URINE AUTO 2+ mg/dL (NEGATIVE); RBC, URINE AUTO 91 /HPF (0-3); SPECIFIC GRAVITY URINE AUTO 1.027 (1.002-1.035); SQUAMOUS EPITHELIAL CELL UR AU 2 /HPF (0-6); UROBILINOGEN, URINE AUTO 0.2 mg/dL (0.0-2.0); WBC, URINE AUTO 159 /HPF (0-3)
== END ==
LOC: M LAB REF 17:25
PROVIDERS: ATTEND Physician Assistant Medical
DX: N39.0 Urinary tract infection, site not specified (principal)